=== PATIENT | male | born 1980 | race American Indian/Alaskan Native ===

== ENCOUNTER 2019-01-30 10:24 | Emergency (ER) | payer OTHER ==
--- NOTE | 2019-01-30 11:28 | Event Note ---
ED Screening Note ED Screening Note: began having dizziness yesterday states sometimes feels like room is spinning works in a warehouse, has been hot no N/V states he tries to drink plenty of water no CP, SOB, numbness, weakness, no vision changes no PMHx no allergies to meds non smoker occ drinker denies drug use This initial assessment/diagnostic orders/clinical plan/treatment(s) is/are subject to change based on patients health status, clinical progression and re- assessment by fellow clinical providers in the ED. Further treatment and workup at subsequent clinical providers discretion. Patient/guardian urged not to elope from the ED as their condition may be serious if not clinically assessed and managed. Initial orders include: labs, UA, EKG
[2019-01-30 12:11] LABS: Alanine Aminotransferase 31 units/L (7-56); Albumin 4.6 g/dL (3.9-5); BUN/Creatinine Ratio 10; Blood Urea Nitrogen 11 mg/dL (9-20); Calcium 9.1 mg/dL (8.4-10.2); Hemolysis Index 22
[2019-01-30 12:12] LABS: Basophils % (Auto) 0.7 % (0.0-1.8); Eosinophils # (Auto) 0.1 K/mm3 (0.0-0.4); Eosinophils % (Auto) 2.9 % (0.0-4.3); Hematocrit 48.4 % (35.5-45.6); Hemoglobin 15.9 gm/dl (11.8-15.2); Lymphocytes # (Auto) 2.1 K/mm3 (1.2-5.4); Mean Corpuscular HGB Conc 33 % (32-34); Mean Corpuscular Volume 89 fl (84-94); Monocytes # (Auto) 0.5 K/mm3 (0.0-0.8); Monocytes % (Auto) 10.5 % (0.0-7.3); Platelet Count 167 K/mm3 (140-440); Red Blood Count 5.41 M/mm3 (3.65-5.03); Red Cell Distribution Width 13.1 % (13.2-15.2)
[2019-01-30 12:47] LABS: Bilirubin,Urine NEG (Negative); Blood,Urine NEG (Negative); Color,Urine Yellow (Yellow); Mucus,Urine FEW /HPF; Protein,Urine <15 mg/dL mg/dL (Negative); WBC,Urine < 1.0 /HPF (0.0-6.0)
[2019-01-30] MEDS ORDERED: ANTIVERT PO ONE (12:58)
--- NOTE | 2019-01-30 13:24 | Emergency Department Report ---
HPI - General Chief Complaint: Dizziness Time Seen by Provider: 01/30/19 11:26 - HPI HPI: 38 year-old male presents to the emergency department with a complaint of a few days of some nonspecific dizziness. He also feels like his "body is shutting down." He says that this may be secondary to some recent insomnia. For the past week the patient has been waking up at night at any slight sound or for no reason at all and is unable to go back to sleep. He denies any pain, nausea, vomiting, shortness of breath, fever, headache, vision change or any neurological deficits. He describes the dizziness as a room spinning sensation but also has some lightheadedness. No past medical history. No primary care physician. He has not taken anything for her symptoms prior to presentation. ED Past Medical Hx - Past Medical History Previous Medical History?: No - Surgical History Past Surgical History?: No - Social History Smoking Status: Never Smoker Substance Use Type: None - Medications Home Medications: Home Medications Medication Instructions Recorded Confirmed Last Taken Type ALPRAZolam [Xanax TAB] 0.5 mg PO QHS PRN #5 tablet 01/30/19 Unknown Rx Meclizine [Antivert] 25 mg PO TID PRN #20 tablet 01/30/19 Unknown Rx ED Review of Systems ROS: Stated complaint: DIZZY/WEAK Other details as noted in HPI Comment: All other systems reviewed and negative Constitutional: other (fatigue). denies: chills, fever Eyes: denies: eye pain, vision change ENT: denies: ear pain, throat pain Respiratory: denies: cough, shortness of breath Cardiovascular: denies: chest pain, palpitations Gastrointestinal: denies: abdominal pain, vomiting Genitourinary: denies: dysuria, discharge Musculoskeletal: denies: back pain, arthralgia Skin: denies: rash, lesions Neurological: other (dizzy, lightheaded, vertigo like symptoms). denies: headache Physical Exam - Physical Exam Vital Signs: Vital Signs 01/30/19 11:26 Temperature 98.2 F Pulse Rate 85 Respiratory 18 Rate Blood Pressure 139/82 O2 Sat by Pulse 97 Oximetry Physical Exam: GENERAL: The patient is well-developed well-nourished. HENT: Normocephalic. Atraumatic. Patient has moist mucous membranes. EYES: Extraocular motions are intact. Pupils equal reactive to light bilaterally. There is horizontal fatigable nystagmus. NECK: Supple. Trachea is midline. CHEST/LUNGS: Clear to auscultation. There is no respiratory distress noted. HEART/CARDIOVASCULAR: Regular. There is no tachycardia. There is no murmur. ABDOMEN: Abdomen is soft, nontender. Patient has normal bowel sounds. There is no abdominal distention. SKIN: Skin is warm and dry. NEURO: The patient is awake, alert, and oriented. The patient is cooperative. The patient has no focal neurologic deficits. Normal speech. Cranial nerves II through XII grossly intact. MUSCULOSKELETAL: There is no tenderness or deformity. There is no limitation range of motion. There is no evidence of acute injury. ED Course Vital Signs 01/30/19 11:26 Temperature 98.2 F Pulse Rate 85 Respiratory 18 Rate Blood Pressure 139/82 O2 Sat by Pulse 97 Oximetry ED Medical Decision Making - Lab Data Result diagrams: 01/30/19 11:34 01/30/19 11:34 - Medical Decision Making This patient presents to the emergency department with some fatigue secondary to insomnia and some nonspecific dizziness/lightheadedness/vertigo-like symptoms. On examination the patient does have some fatigable horizontal nystagmus. Otherwise the patient has cranial nerves II through XII grossly intact and does not have any focal, motor or sensory deficits. It would make sense that if the patient is not getting satisfactory sleep at night, that he may have some of these other symptoms. His labs have been unremarkable including CBC, metabolic panel and TSH. Patient was given a dose of Antivert. His vital signs have been stable throughout his ED course. He was reevaluated multiple times over mu ltiple hours and is feeling improved. Prior to discharge, the patient was seen ambulatory in the emergency department and both appears and feels stable. He has been given a referral for primary care. He will be given a prescription for some Antivert. I have also given him a total of 5 pills of 0.5 mg Xanax to take 1 by mouth at night to help him get some satisfactory sleep. He has been instructed to return to the emergency Department with any worsening of his symptoms or any acute distress. - Differential Diagnosis vertigo, electrolyte abnormalities, hypothyroidism Critical Care Time: No Critical care attestation.: If time is entered above; I have spent that time in minutes in the direct care of this critically ill patient, excluding procedure time. ED Disposition Clinical Impression: Dizziness, Vertigo Insomnia Qualifiers: Insomnia type: unspecified Qualified Code(s): G47.00 - Insomnia, unspecified Disposition: - TO HOME OR SELFCARE Is pt being admited?: No Condition: Stable Instructions: Vertigo (ED), Dizziness (ED), Insomnia (ED) Additional Instructions: Please follow-up with a primary care physician in the next few days. Return to the emergency Department with any worsening of your symptoms or any acute distress. You have been prescribed a medication that is sedating and therefore should not be taken prior to driving, working, and responsible for children and in no way should be mixed with alcohol of any quantity. Prescriptions: ALPRAZolam [Xanax TAB] 0.5 mg PO QHS PRN #5 tablet PRN Reason: Insomnia Meclizine [Antivert] 25 mg PO TID PRN #20 tablet PRN Reason: Vertigo Referrals: CÉSAR MULLINS MD [Staff Physician] - 2-3 Days [facility] [Outside] - 2-3 Days Forms: Work/School Release Form(ED) Time of Disposition: 14:22
[2019-01-30 15:07] VITALS: BP 121/89
== END 2019-01-30 15:07 | disposition home or self-care (01) ==
LOC: ED 10:24
DX: R42 Dizziness and giddiness (principal); G47.00 Insomnia, unspecified
CPT/HCPCS: 36415; 80053; 81001; 84443; 85025; 93005; 93010

== ENCOUNTER 2021-04-23 14:57 | Outpatient (CLI) | payer OTHER ==
[2021-04-23 15:44] LABS: Basophils % (Auto) 0.6 % (0.0-1.8); Eosinophils # (Auto) 0.2 K/mm3 (0.0-0.4); Lymphocytes # (Auto) 2.8 K/mm3 (1.2-5.4); Lymphocytes % (Auto) 52.9 % (13.4-35.0); Mean Corpuscular HGB Conc 31 % (32-34); Mean Corpuscular Volume 88 fl (84-94); Monocytes # (Auto) 0.4 K/mm3 (0.0-0.8); Monocytes % (Auto) 7.7 % (0.0-7.3); Platelet Count 195 K/mm3 (140-440); Red Cell Distribution Width 13.7 % (13.2-15.2)
[2021-04-23 15:45] LABS: Hematocrit 51.7 % (35.5-45.6); Hemoglobin 16.1 gm/dl (11.8-15.2)
[2021-04-23 16:00] LABS: Alanine Aminotransferase 24 units/L (7-56); Albumin 4.3 g/dL (3.9-5); BUN/Creatinine Ratio 10; Blood Urea Nitrogen 11 mg/dL (9-20); Calcium 9.2 mg/dL (8.4-10.2); Chol/HDL Ratio 6.86 %; HDL Cholesterol 29 mg/dL (40-59); Hemolysis Index 7; LDL Cholesterol,Direct 147 mg/dL (50-130)
[2021-04-23 16:10] LABS: ABG HCO3 23.9 mmol/L (20.0-26.0); ABG PCO2 40.6 mm Hg; ABG PH 7.388 pH Units (7.350-7.450); ABG PO2 82.3 mm Hg (80.0-90.0)
[2021-04-23 16:31] LABS: ABG Methemoglobin 0.5 % (0.0-1.5); ABG Oxygen Saturation 96.6 % (95.0-99.0)
== END 2021-04-23 14:58 | disposition home or self-care (01) ==
LOC: LAB 14:57
PROVIDERS: ATTEND Internal Medicine
DX: G47.33 Obstructive sleep apnea (adult) (pediatric) (principal); R06.09 Other forms of dyspnea; Z86.16 Personal history of COVID-19
CPT/HCPCS: 36415; 36600; 80053; 80061; 82550; 82728; 82803; 83615; 84436; 84443; 84484; 85025; 85379; 86140